=== PATIENT | male | born 1985 | race Caucasian/White ===

== ENCOUNTER 2021-09-17 20:11 | Emergency (ER) | payer MEDICAID ==
[~2021-09-17] VITALS: Ht 185.4 cm; Wt 61.2 kg
--- NOTE | 2021-09-17 20:24 | NUR ---
BIBS C/O RIGHT WRIST RADIATING TO RIGHT THUMB PAIN X1 MONTH.NO DEFORMITIES NOTED. PATIENT ALERT AND ORIENTED X3. AMBULATORY WITH NO LABORED BREATHING.
[2021-09-17 21:54] VITALS: BP 126/70
--- NOTE | 2021-09-17 21:54 | NUR ---
Patient discharged to home in stable condition. Written and verbal after care instructions given. Patient verbalizes understanding of instruction.
== END 2021-09-17 21:55 | disposition home or self-care (01) ==
LOC: ER 20:25
DX: M25.531 Pain in right wrist (principal)
CPT/HCPCS: 73090-TC; 73110